=== PATIENT | female | born 1980 | race Caucasian/White ===

== ENCOUNTER → 2018-03-26 | Outpatient (CLI) | payer OTHER ==
[~2018-03-26] MED LIST: ACHYD1T PO; BARIUM SUSPENSION 105% (LIQUID POLIBAR PLUS) 240 ML/DOSE PO ONE; BARIUM SUSPENSION 60% (LIQUID EZ PAQUE) 240 ML DOSE PO ONE; BIRTH CONTROL PILL PO; CETI10TA17 PO; PHEN200T16 PO
--- NOTE | 2018-03-26 12:52 | Diagnostic Imaging Report ---
INDICATION: Recent endoscopy demonstrating hiatal hernia. The study is performed for further characterization. TECHNIQUE: Patient ingested effervescent crystals as well as thin and thick barium and imaging of the esophagus, stomach, and proximal small bowel was performed. Total of 2 minutes and 11 seconds of fluoroscopic time was utilized. FINDINGS: The preliminary radiograph of the abdomen is unremarkable. The esophagus has a fairly smooth contour. No mass or stricture is identified. There is a moderate-sized sliding-type hiatal hernia. There were occasional episodes of gastroesophageal reflux demonstrated. Stomach has a normal configuration. No mass or stricture is seen. The duodenal bulb is without deformity. Visualized small bowel loops are unremarkable. IMPRESSION: Moderate-sized sliding-type hiatal hernia as well as mild gastroesophageal reflux. Dictated by: Dictated on workstation # [id number]
== END ==
LOC: RAD 10:38
PROVIDERS: ATTEND Internal Medicine Gastroenterology
DX: K44.9 Diaphragmatic hernia without obstruction or gangrene (principal); K21.9 Gastro-esophageal reflux disease without esophagitis; R49.0 Dysphonia
CPT/HCPCS: 74241

== ENCOUNTER → 2019-08-12 | Outpatient (CLI) | payer BC, OTHER ==
[~2019-08-12] MED LIST changes: -BARIUM SUSPENSION 105% (LIQUID POLIBAR PLUS) 240 ML/DOSE PO ONE; -BARIUM SUSPENSION 60% (LIQUID EZ PAQUE) 240 ML DOSE PO ONE
--- NOTE | 2019-08-13 12:58 | Diagnostic Imaging Report ---
INDICATION: Routine screening. No prior mammograms are available for comparison. This is a baseline study. 2-D and 3-D bilateral screening mammography was performed with CAD. Scattered fibroglandular densities are identified bilaterally. No dominant mass or malignant appearing microcalcifications are seen. Axillae are unremarkable. IMPRESSION: BI-RADS Category 1 No mammographic features suspicious for malignancy are identified. ACR BI-RADS Category 1: Negative. Result letter will be mailed to the patient. Note: At least 10% of breast cancer is not imaged by mammography. Dictated by: Dictated on workstation # [id number]
== END ==
LOC: RAD 14:52
PROVIDERS: ATTEND Family Medicine
DX: Z12.31 Encounter for screening mammogram for malignant neoplasm of breast (principal)
CPT/HCPCS: 77067

== ENCOUNTER 2021-03-13 15:28 | Emergency (ER) | payer BC ==
[~2021-03-13] VITALS: Ht 127 cm; Wt 79.0 kg
[2021-03-13] MEDS ORDERED: OXYMETAZOLINE (AFRIN) 0.05% NA 30 ML BTL ONE (16:29)
--- NOTE | 2021-03-13 16:33 | ED EENT ---
History of Present Illness General Chief Complaint: Nasal Problems Stated Complaint: NOSEBLEED Nursing Triage Note: PT ARRIVES TO ER WITH C/O NOSE BLEED. PT STATES THIS IS THE SECOND ONE TODAY THAT HAS LASTED OVER AN HOUR. PT DOES NOT NORMALLY GET NOSE BLEEDS Source: patient Exam Limitations: no limitations History of Present Illness Date Seen by Provider: Mar 13, 2021 Time Seen by Provider: 16:10 Initial Comments Patient is a 40-year-old female who presents to the emergency room today with a chief complaint of nosebleed primarily out of the right nare. Patient has had nosebleeds off and on for the last 2 or 3 days. She attributes this to dry nasal mucosa related to her allergies. She does take dxme-kol-hsxqmis allergy medications. Denies any recent illnesses such as fevers, chills, productive cough. She is Covid vaccinated. She is slightly nauseated with the bleeding. Feels like she has a clot in the back of her throat. She is on daily baby aspirin. She has not taken it for the last 2 or 3 days. Her primary care doctor is Dr. Carter, she is never seen an ENT. All other review of systems reviewed and negative except as stated. Timing/Duration: abrupt, intermittent Severity: moderate Location: nose (right nare) Prearrival Treatment: no prearrival treatment Associated Symptoms: nasal congestion/drainage ("allergies"), other (nausea) Allergies and Home Medications Allergies Coded Allergies: codeine (Unverified Allergy, Unknown, NAUSEA, 03/13/21) Patient Home Medication List Home Medication List Reviewed: Yes Cetirizine Hcl (Cetirizine Hcl) 10 Mg Tablet, 10 MG PO DAILY, (Reported) Entered as Reported by: VICTOR M MANCILLA on 08/31/12 1135 Hydrocodone Bit/Acetaminophen ([place]orc[place] Plus 10/325 Mg) 1 Tab Tablet, 1-2 TAB PO Q4H PRN, (Reported) Entered as Reported by: XIMENA JOSHUA on 09/04/12 1110 Ondansetron (Ondansetron Odt) 4 Mg Tab.rapdis, 4 MG PO Q8H PRN for nausea Prescribed by: SABA DE SANTIAGO on 03/13/21 1810 Phenazopyridine Hcl (Pyridium) 200 Mg Tablet, 200 MG PO TID PRN, (Reported) Entered as Reported by: XIMENA JOSHUA on 09/04/12 1110 [ Control Pill] , 1 TAB PO DAILY, (Reported) Entered as Reported by: VICTOR M MANCILLA on 08/31/12 1135 Review of Systems Review of Systems Constitutional: see HPI Eyes: No Symptoms Reported Ears: No Symptoms Reported Nose: congestion, epistaxis, bloody discharge Mouth: no symptoms reported Throat: no symptoms reported Respiratory: no symptoms reported Cardiovascular: no symptoms reported Gastrointestinal: nausea : No Musculoskeletal: no symptoms reported Skin: no symptoms reported Neurological: No Symptoms Reported All Other Systems Reviewed Negative Unless Noted: Yes Past Usjyfid-Lpcwzz-Qsxofa Hx Patient Social History Tobacco Use?: No Substance use?: No Alcohol Use?: Yes Alcohol Frequency: Rarely Immunizations Up To Date Influenza Vaccine Up-to-Date: No; Not Current First/Initial COVID19 Vaccinat: JANUARY 2021 Second COVID19 Vaccination [place]: JANUARY 2021 COVID19 Vaccine [employer]: DC Devices Physical Exam Vital Signs Vital Signs - First Documented 03/13/21 15:40 Temp 37.0 Pulse 110 Resp 20 B/P (MAP) 138/96 (110) Height, Weight, BMI Height: '" Weight: lbs. oz. kg; 48.00 BMI Method: General Appearance: WD/WN, no apparent distress Eyes: bilateral eye normal inspection, bilateral eye PERRL, bilateral eye EOMI Nose: active bleeding Mouth/Throat: other (blood posterior pharynx - no active bleeding) Neck: supple, normal inspection Cardiovascular: regular rate, rhythm Gastrointestinal: non tender, soft Neurologic/Psychiatric: alert, normal mood/affect, oriented x 3 Skin: normal color, warm/dry Progress/Results/Core Measures Results/Orders Lab Results Laboratory Tests Test 03/13/21 17:05 Range/Units White Blood Count 15.1 H 4.3-11.0 10^3/uL Red Blood Count 3.86 3.80-5.11 10^6/uL Hemoglobin 12.2 11.5-16.0 g/dL Hematocrit 36 35-52 % Mean Corpuscular Volume 94 80-99 fL Mean Corpuscular Hemoglobin 32 25-34 pg Mean Corpuscular Hemoglobin Concent 34 32-36 g/dL Red Cell Distribution Width 11.9 10.0-14.5 % Platelet Count 585 H 130-400 10^3/uL Mean Platelet Volume 8.4 L 9.0-12.2 fL Immature Granulocyte % (Auto) 1 % Neutrophils (%) (Auto) 67 42-75 % Lymphocytes (%) (Auto) 21 12-44 % Monocytes (%) (Auto) 4 0-12 % Eosinophils (%) (Auto) 7 0-10 % Basophils (%) (Auto) 0 0-10 % Neutrophils # (Auto) 10.2 H 1.8-7.8 10^3/uL Lymphocytes # (Auto) 3.2 1.0-4.0 10^3/uL Monocytes # (Auto) 0.6 0.0-1.0 10^3/uL Eosinophils # (Auto) 1.0 H 0.0-0.3 10^3/uL Basophils # (Auto) 0.1 0.0-0.1 10^3/uL Immature Granulocyte # (Auto) 0.1 0.0-0.1 10^3/uL Neutrophils % (Manual) 68 % Lymphocytes % (Manual) 23 % Monocytes % (Manual) 3 % Eosinophils % (Manual) 6 % Nucleated Red Blood Cells 1 Polychromasia SLIGHT My Orders Orders - SABA DE SANTIAGO MD Oxymetazoline 0.05% Nasal [place] (Afrin 0. (03/13/21 21:00) Oxymetazoline 0.05% Nasal [place] (Afrin 0. (03/13/21 16:29) Cbc With Automated Diff (03/13/21 16:38) Ondansetron Oral Dissolve Tab (Zofran (03/13/21 16:38) Manual Differential (03/13/21 17:05) Vital Signs/I&O Blood Pressure Mean: 110 Progress Progress Note : Time: 18:06 Progress Note a squirt of Afrin used in each nare, patient seem to have pretty much control of epistaxis on my entry into the room. She did ultimately vomit up a large blood clot. She was given some Zofran. CBC was checked, hemoglobin is stable. Patient continued to be monitored for about an hour, continue to achieve hemostasis. Vital signs are stable. Patient is given good return precautions. Will be referred to ENT for follow-up as well as to her primary care doctor, Dr. Carter. She is quite comfortable with the plan of care. All questions were sought and answered. I did advise her to go ahead and hold her baby aspirin again today. Patient is stable for discharge. Departure Impression Primary Impression: Epistaxis Disposition: 01 HOME, SELF-CARE Condition: Stable Departure-Patient Inst. Decision time for Depature: 18:07 Referrals: HALI JUAREZ MD, HOLLY A MD NO,LOCAL PHYSICIAN (PCP) Primary Care Physician Patient Instructions: Nosebleeds (DC) Add. Discharge Instructions: Go ahead and hold your aspirin today. If you have a return of nosebleed, use 1 squirt of aspirin again in each nare. Blow all of the clots out, hold direct pressure for [address] can also place an ice pack to the back of your neck. If after 15 minutes you do not have control of the bleeding please come back to the emergency department for reevaluation. Saline gel nasal swabs can be obtained at the local pharmacy, ask your pharmacist. Follow-up with Dr. Carter. I have also given you referral information for Dr. Juarez, ENT. Scripts Ondansetron (Ondansetron Odt) 4 Mg Tab.rapdis 4 MG PO Q8H PRN for nausea, #15 TAB Prov: SABA DE SANTIAGO MD 03/13/21 Copy Copies To 1: FELI CARTER MD, KATHRYN M MD Mar 13, 2021 16:33
[2021-03-13] MEDS ORDERED: ONDANSETRON 4 MG (ZOFRAN) ORAL DISSOLVE TAB PO STA (16:38)
[2021-03-13 17:11] LABS: BASOPHILS # (AUTO) 0.1 10^3/uL (0.0-0.1); BASOPHILS % (AUTO) 0 % (0-10); EOSINOPHILS % (AUTO) 7 % (0-10); HEMATOCRIT 36 % (35-52); HEMOGLOBIN 12.2 g/dL (11.5-16.0); LYMPHOCYTES # (AUTO) 3.2 10^3/uL (1.0-4.0); LYMPHOCYTES % (AUTO) 21 % (12-44); MEAN CORPUSCULAR HEMOGLOBIN 32 pg (25-34); MEAN CORPUSCULAR HGB CONC 34 g/dL (32-36); MEAN CORPUSCULAR VOLUME 94 fL (80-99); MEAN PLATELET VOLUME 8.4 fL (9.0-12.2); MONOCYTES # (AUTO) 0.6 10^3/uL (0.0-1.0); MONOCYTES % (AUTO) 4 % (0-12); NEUTROPHILS # (AUTO) 10.2 10^3/uL (1.8-7.8); NEUTROPHILS % (AUTO) 67 % (42-75); PLATELET COUNT 585 10^3/uL (130-400); WHITE BLOOD COUNT 15.1 10^3/uL (4.3-11.0)
[2021-03-13 17:38] LABS: EOSINOPHILS % (MANUAL) 6 %; LYMPHOCYTES % (MANUAL) 23 %; MONOCYTES % (MANUAL) 3 %; NEUTROPHILS % (MANUAL) 68 %; NUCLEATED RED BLOOD CELLS 1
[2021-03-13 17:39] LABS: POLYCHROMASIA SLIGHT
[2021-03-13] MEDS ORDERED: ONDA4TAB11 PO (18:10)
[2021-03-13 18:30] VITALS: BP 146/107
[2021-03-13] MEDS ORDERED: OXYMETAZOLINE (AFRIN) 0.05% NA 30 ML BTL SCH (21:00)
== END 2021-03-13 18:30 | disposition home or self-care (01) ==
LOC: EDUNIT# 15:28 → ER 15:30
DX: R04.0 Epistaxis (principal)
CPT/HCPCS: 36415; 85007; 85027